=== PATIENT | male | born 1965 | race Two or more races ===

== ENCOUNTER 2023-04-12 09:47 | Outpatient (OUT) | payer BC, SELFPAY ==
--- NOTE | 2023-04-12 | XR_ITS ---
The [address] [address] Patient Name: EMILIANO MARTINS MRN: [id number] date: 1965 Sex: M Assigned Patient Location: [facility] Current Patient Location: [facility] Accession/Order Number: [id number] Exam Date: 04/12/2023 10:04 Report Date: 04/12/2023 12:14 At the request of: LAURYN NICHOLAS Procedure: XR ankle LINDA min 3V EXAM: XR FOOT LINDA MIN 3V, XR ANKLE LINDA MIN 3V HISTORY: BILATERAL FOOT AND ANKLE PAIN. Patient has a history of right ankle fracture with repair. COMPARISON: None. TECHNIQUE: Routine views of the bilateral feet and bilateral ankles were obtained. FINDINGS: RIGHT FOOT AND RIGHT ANKLE: There is loss of the normal contour of the tibiotalar joint with evidence of subchondral erosive changes. Mild medial displacement of the talus is seen in comparison to the tibia. Marked soft tissue swelling is noted. There is mild caudal migration of the distal fibula. Heterotopic bone formation is identified. Ankle joint effusion. The calcaneal pitch is 10 degrees. There is hallux valgus deformity with severe osteoarthritis at the first metatarsophalangeal joint and at the interphalangeal joint of the toes. LEFT ANKLE AND LEFT FOOT: There is pes planovalgus deformity. Ankle joint effusion. Soft tissue swelling is noted near circumferentially most prominent at the medial aspect. There is mild lateral displacement of the talus in comparison to the tibia with loss of the normal joint alignment. These findings are concerning for ankle instability. There is mild to moderate polyarticular osteoarthritis involving the joints of the midfoot and the forefoot. Plantar calcaneal spur. XR/XR ankle LINDA min 3V IMPRESSION: RIGHT ANKLE AND RIGHT FOOT: 1. Evidence of pes planovalgus deformity with caudal migration of the fibula. 2. Marked soft tissue swelling near circumferentially at the right ankle. Heterotopic bone formation from the medial malleolus. 3. Evidence of destruction at the tibiotalar joint. LEFT ANKLE AND LEFT FOOT: 1. Pes planovalgus deformity with significant caudally oriented talus. Loss of normal alignment of the tibiotalar joint is further concerning for ankle instability. 2. Joint effusion and soft tissue swelling. 3. Mild to moderate polyarticular osteoarthritis. Electronically authenticated by: LILI COTE Date: 04/12/2023 12:14
--- NOTE | 2023-04-12 | XR_ITS ---
The [address] [address] Patient Name: EMILIANO MARTINS MRN: [id number] date: 1965 Sex: M Assigned Patient Location: [facility] Current Patient Location: [facility] Accession/Order Number: [id number] Exam Date: 04/12/2023 10:04 Report Date: 04/12/2023 12:14 At the request of: LAURYN NICHOLAS Procedure: XR foot LINDA min 3V EXAM: XR FOOT LINDA MIN 3V, XR ANKLE LINDA MIN 3V HISTORY: BILATERAL FOOT AND ANKLE PAIN. Patient has a history of right ankle fracture with repair. COMPARISON: None. TECHNIQUE: Routine views of the bilateral feet and bilateral ankles were obtained. FINDINGS: RIGHT FOOT AND RIGHT ANKLE: There is loss of the normal contour of the tibiotalar joint with evidence of subchondral erosive changes. Mild medial displacement of the talus is seen in comparison to the tibia. Marked soft tissue swelling is noted. There is mild caudal migration of the distal fibula. Heterotopic bone formation is identified. Ankle joint effusion. The calcaneal pitch is 10 degrees. There is hallux valgus deformity with severe osteoarthritis at the first metatarsophalangeal joint and at the interphalangeal joint of the toes. LEFT ANKLE AND LEFT FOOT: There is pes planovalgus deformity. Ankle joint effusion. Soft tissue swelling is noted near circumferentially most prominent at the medial aspect. There is mild lateral displacement of the talus in comparison to the tibia with loss of the normal joint alignment. These findings are concerning for ankle instability. There is mild to moderate polyarticular osteoarthritis involving the joints of the midfoot and the forefoot. Plantar calcaneal spur. XR/XR foot LINDA min 3V IMPRESSION: RIGHT ANKLE AND RIGHT FOOT: 1. Evidence of pes planovalgus deformity with caudal migration of the fibula. 2. Marked soft tissue swelling near circumferentially at the right ankle. Heterotopic bone formation from the medial malleolus. 3. Evidence of destruction at the tibiotalar joint. LEFT ANKLE AND LEFT FOOT: 1. Pes planovalgus deformity with significant caudally oriented talus. Loss of normal alignment of the tibiotalar joint is further concerning for ankle instability. 2. Joint effusion and soft tissue swelling. 3. Mild to moderate polyarticular osteoarthritis. Electronically authenticated by: LILI COTE Date: 04/12/2023 12:14
== END 2023-04-12 09:48 | disposition home or self-care (01) ==
LOC: RAD 09:49
PROVIDERS: Visit Provider Podiatrist Foot & Ankle Surgery
DX: M25.571 Pain in right ankle and joints of right foot (principal); M25.572 Pain in left ankle and joints of left foot; M21.42 Flat foot [pes planus] (acquired), left foot; M21.41 Flat foot [pes planus] (acquired), right foot
CPT/HCPCS: 73610; 73630

== ENCOUNTER 2023-04-14 10:09 | Outpatient (OUT) | payer BC, SELFPAY ==
--- NOTE | 2023-04-14 10:25 | CT_ITS ---
The [place] [id number] Patient Name: EMILIANO MARTINS MRN: [id number] date: 1965 Sex: M Assigned Patient Location: CT Current Patient Location: CT Accession/Order Number: [id number] Exam Date: 04/14/2023 10:29 Report Date: 04/14/2023 11:13 At the request of: LAURYN NICHOLAS Procedure: CT ankle RT wo con EXAMINATION: CT ankle RT wo con HISTORY: Post Traumatic Degenerative Joint Disease COMPARISON: XR ankle bilateral 04/12/2023 TECHNIQUE: Multi-planar CT images were created without and/or with IV contrast according to examination type. Dose reduction techniques were achieved by using automated exposure control and/or adjustment of mA and/or kV according to patient size and/or use of iterative reconstruction technique. FINDINGS: BONES: Complete loss of the tibiotalar joint space with extensive lytic changes and bone remodeling. Mild lateral displacement and extensive lytic changes within the medial malleolus, likely representing fracture on top of chronic degenerative changes. Degenerative lytic changes along medial margin of lateral malleolus. Single screw within distal fibula suggesting prior repair for fracture. Minimal degenerative changes of the midfoot and forefoot. SOFT TISSUES: Soft tissue swelling and edema surrounding the ankle and proximal foot. EFFUSION: None visible. OTHER: Moderate degenerative changes noted involving the medial compartment of the knee. CT/CT ankle RT wo con IMPRESSION: 1. 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 Electronically authenticated by: CHARLIE KEEN Date: 04/14/2023 11:13
== END 2023-04-14 10:10 | disposition home or self-care (01) ==
PROVIDERS: Visit Provider Podiatrist Foot & Ankle Surgery
DX: M19.171 Post-traumatic osteoarthritis, right ankle and foot (principal); M87.9 Osteonecrosis, unspecified
CPT/HCPCS: 73700